=== PATIENT | female | born 1995 | race Caucasian/White ===

== ENCOUNTER 2019-08-28 20:05 | Emergency (ER) | payer OTHER ==
[~2019-08-28] VITALS: Ht 162.6 cm; Wt 97.5 kg
[2019-08-28] MEDS ORDERED: PRENATAL VITAMIN (20:16)
[2019-08-28] MEDS ORDERED: CLEOCIN HCL300 MG PO (20:20)
[2019-08-28] MEDS ORDERED: NORCO 5-325 TA1 EAC1 PO (20:25)
[2019-08-28 20:39] VITALS: BP 139/90
== END 2019-08-28 20:39 | disposition home or self-care (01) ==
LOC: M.ERS 20:05
DX: O26.891 Other specified pregnancy related conditions, first trimester (principal); K03.81 Cracked tooth; O99.511 Diseases of the respiratory system complicating pregnancy, first trimester; Z3A.09 9 weeks gestation of pregnancy; Z88.0 Allergy status to penicillin